=== PATIENT | male | born 1995 | race African-American/Black ===

== ENCOUNTER 2018-07-31 09:34 | Emergency (ER) | payer MEDICAID ==
[~2018-07-31] VITALS: Ht 177.8 cm; Wt 66.0 kg
[2018-07-31] MEDS ORDERED: KETOROLAC 60MG/2ML VIAL IM ONE (11:00)
[2018-07-31 11:42] VITALS: BP 137/77
== END 2018-07-31 11:00 | disposition home or self-care (01) ==
LOC: ER 10:18
DX: M54.30 Sciatica, unspecified side (principal); F12.10 Cannabis abuse, uncomplicated; Z87.891 Personal history of nicotine dependence
CPT/HCPCS: 82962; 96372; 99283; J1885

== ENCOUNTER 2019-01-30 22:55 | Emergency (ER) | payer MEDICAID ==
[~2019-01-30] VITALS: Ht 175.3 cm; Wt 69.0 kg
[2019-01-31] MEDS ORDERED: SODIUM CHLORIDE 0.9% 1,000 ML IV ONE (00:45)
[2019-01-31 01:10] LABS: BASOPHILS % 0.7 % (0.0-2.0); EOSINOPHILS % 2.3 % (0.0-5.0); HEMATOCRIT. 43.1 % (42.0-52.0); HEMOGLOBIN. 14.8 g/dL (14.0-18.0); LYMPHOCYTES % 26.5 % (20.0-50.0); MEAN CORPUSCULAR HEMOGLOBIN 32.9 pg (28.0-32.0); MEAN CORPUSCULAR VOLUME 96.1 fL (80.0-94.0); MEAN PLATELET VOLUME 9.1 fl (7.4-10.4); MONOCYTES % 7.4 % (2.0-8.0); NEUTROPHILS % 63.1 % (40.0-76.0); PLATELET 199 x1000/uL (130-400); RED BLOOD CELL COUNT 4.49 mill/uL (4.7-6.1)
[2019-01-31 01:15] LABS: CHLORIDE 109 mEq/L (98-107)
[2019-01-31 01:28] LABS: CLARITY URINE CLOUDY (CLEAR); COLOR URINE YELLOW (YELLOW); KETONES URINE NEGATIVE (NEGATIVE); LEUKOCYTE ESTERASE URINE NEGATIVE (NEGATIVE); NITRITE URINE NEGATIVE (NEGATIVE); OCCULT BLOOD URINE NEGATIVE (NEGATIVE); PROTEIN URINE NEGATIVE (NEGATIVE); SPECIFIC GRAVITY URINE 1.024 (1.005-1.030); UROBILINOGEN URINE 0.2 E.U./dL (0.2-1.0)
[2019-01-31] MEDS ORDERED: IOHEXOL-300 100 ML BOTTLE ONE (02:46)
[2019-01-31 04:14] VITALS: BP 132/67
== END 2019-01-31 04:28 | disposition home or self-care (01) ==
LOC: ER 22:55
DX: R10.32 Left lower quadrant pain (principal); R10.31 Right lower quadrant pain; F12.10 Cannabis abuse, uncomplicated; Z98.890 Other specified postprocedural states
CPT/HCPCS: 36415; 74177; 80053; 81003; 83690; 85025; 99284; J7030; Q9967